=== PATIENT | female | born 1985 | race Caucasian/White ===

== ENCOUNTER 2017-04-24 08:40 | Emergency (ER) | payer MEDICAID, OTHER ==
[~2017-04-24] VITALS: Wt 61.5 kg
[~2017-04-24 08:40] MED LIST: CALC-649 PO; FERR27TA PO; PREN1TAB49 PO
[2017-04-24] MEDS ORDERED: ONDANSETRON 4 MG INJ IV STA (09:49)
[2017-04-24] MEDS ORDERED: KETOROLAC 30 MG INJ IV STA (09:49)
[2017-04-24] MEDS ORDERED: SOD CHLORIDE 0.9% 1,000 ML IV STA (09:49)
[2017-04-24 10:15] LABS: ADD UMIC NO; UR ASCORBIC ACID NEGATIVE (NEGATIVE); UR BILIRUBIN (Dip) NEGATIVE (NEGATIVE); UR BLOOD (Dip) NEGATIVE (NEGATIVE); UR CLARITY CLEAR (CLEAR); UR COLOR STRAW (YELLOW); UR GLUCOSE (Dip) NEGATIVE (NEGATIVE); UR KETONES (Dip) NEGATIVE (NEGATIVE); UR LEUKOCYTE ESTERASE (Dip) NEGATIVE Leu/ul (NEGATIVE); UR NITRITE (Dip) NEGATIVE (NEGATIVE); UR SPECIFIC GRAVITY (Dip) 1.003 (1.003-1.030); UR TOTAL PROTEIN (Dip) NEGATIVE (NEGATIVE); UR UROBILINOGEN (Dip) NEGATIVE (NEGATIVE)
[2017-04-24 10:18] LABS: BASOPHIL # 0.1 10^3/ul (0.0-0.1); BASOPHILS % 0.7 % (0.0-2.0); EOSINOPHILS # 0.4 10^3/ul (0.0-0.5); EOSINOPHILS % 5.7 % (0.0-7.0); HEMATOCRIT 39.2 % (37.0-47.0); HEMOGLOBIN 13.3 g/dl (12.0-16.0); LYMPHOCYTES # 2.5 10^3/ul (0.8-2.9); LYMPHOCYTES % 34.7 % (15.0-51.0); MEAN CORPUSCULAR HGB CONC 33.9 g/dl (32.0-37.0); MEAN CORPUSCULAR VOLUME 91.4 fl (82.0-101.0); MONOCYTE # 0.4 10^3/ul (0.3-0.9); MONOCYTES % 5.2 % (0.0-11.0); NEUTROPHIL # 3.9 10^3/ul (1.6-7.5); NEUTROPHILS % 53.6 % (39.0-77.0); PLATELET COUNT 211 10^3/UL (140-415); RED BLOOD COUNT 4.29 10^6/ul (4.20-5.40); RED CELL DISTRIBUTION WIDTH 12.6 % (11.5-14.5); WHITE BLOOD COUNT 7.3 10^3/ul (4.8-10.8)
[2017-04-24 10:31] LABS: POSITIVE DIFF @See below
[2017-04-24 11:28] LABS: ALBUMIN 3.6 g/dl (3.3-4.9); ALBUMIN/GLOBULIN RATIO 1.05; BILIRUBIN,INDIRECT 0.3 mg/dl (0-1.1); BILIRUBIN,TOTAL 0.3 mg/dl (0.2-1.3); CALCIUM 9.1 mg/dl (8.4-10.2); CREATININE 0.72 mg/dl (0.44-1.00); POTASSIUM 4.8 mmol/L (3.5-5.1)
--- NOTE | 2017-04-24 11:40 | RADRPT ---
PROCEDURE: US Pelvis CLINICAL INDICATION: PELVIC PAIN TECHNIQUE: Multiple sonographic images of the pelvis were obtained utilizing a transabdominal and endovaginal technique. The images were reviewed on a PACS workstation. COMPARISON: None. LMP: 04/12/2017 FINDINGS: The uterus measures 9.2 x 4.8 x 6.1 cm. The endometrial echo complex measures 20 mm in thickness. No discrete lesion is seen. The right ovary measures 3.5 x 1.8 x 2.4 cm. The left ovary measures 3.5 x 2.4 x 2.2 cm. There is no rmal vascular flow in both ovaries. No significant ovarian lesions are seen. There is trace pelvic free fluid. IMPRESSION: There is abnormal thickening of the endometrium to 20 mm. Correlation with a beta HCG level is recom mended. Normal vascular flow to bilateral ovaries. No significant ovarian lesions are identified. RPTAT: EE Physician Catrachito Date Time Electronically viewed and signed by Physician Catrachito on 04/24/2017 11:40 /
[2017-04-24] MEDS ORDERED: CEFTRIAXONE 1 GM INJ IM ONE (13:00)
[2017-04-24] MEDS ORDERED: LIDOCAINE 1% (MDV) 20 ML INJ SC ONE (13:00)
--- NOTE | 2017-04-24 13:08 | ERD ---
ER Documentation Chief Complaint Date/Time DATE: 04/24/17 Chief Complaint Dysuria, Pelvic pain HPI The patient is a 31-year-old female who presents to the Emergency Department with complaint of pelvic pain, dysuria, vaginal spotting, and new vaginal discharge. The patient reports that her symptoms initially began one month ago, with onset of dysuria, which she attributed to decreased fluid intake. However, over the past two weeks, she has been experiencing associated suprapubic abdominal pain/pelvic pain, left side greater than right, with onset of clear/ transparent, mucous-like vaginal discharge. She rates her current pain as 5/10. Further, over the past few days, she has also noted blood upon wiping, after using the restroom to urinate. She reports that her last menstrual period was on 04/12/2017, and normal. She is sexually active with her , with whom she does not use barrier protection. Her last pap smear was greater than one year ago, and showed an "infection" for which she was treated. She has not had a pap smear since. She denies any known STI exposure. Denies fevers, sweats, chills, nausea, vomiting, flank pain, diarrhea. Denies any other complaints at this time. She is A0. ROS All systems reviewed and are negative except as per history of present illness. Medications Home Meds Active Scripts Phenazopyridine Hcl* (Pyridium*) 200 Mg Tab, 200 MG PO TID Y for URINARY PAIN for 2 Days, #6 TAB Prov:ALISA SAUCEDA PA-C 04/24/17 Doxycycline Hyclate* (Doxycycline Hyclate*) 100 Mg Tablet.dr, 100 MG PO BID for 7 Days, TAB Prov:ALISA SAUCEDA PA-C 04/24/17 Reported Medications Calcium Carbonate (Calcium) 1 Tab Tablet, 1 TAB PO DAILY 10/12/11 Ferrous Sulfate (Iron) 1 Tab Tablet, 1 TAB PO 10/12/11 Vits W-Ca,Fe,Fa(<1MG) () 1 Tab Tablet, 1 TAB PO DAILY 04/30/11 Allergies Allergies: Coded Allergies: No Known Drug Allergies (Verified Allergy, 06/07/11) PMhx/Soc History of Surgery: No Anesthesia Reaction: No Hx Neurological Disorder: No Hx Respiratory Disorders: No Hx Cardiac Disorders: No Hx Psychiatric Problems: No Hx Miscellaneous Medical Probl: No Hx Alcohol Use: No Hx Substance Use: No Hx Tobacco Use: No Physical Exam Vitals Vital Signs Date Time Temp Pulse Resp B/P Pulse Ox O2 Delivery O2 Flow Rate FiO2 04/24/17 13:27 88 18 117/72 99 Room Air 04/24/17 08:42 97.3 76 20 121/61 98 Physical Exam GENERAL: Well-developed, well-nourished, in no acute distress. HEENT: Head is normocephalic, atraumatic. No scleral pallor or icterus. Pupils equal, round and reactive to light. Extraocular movements intact. Conjunctiva pink. Moist mucous membranes. NECK: Supple. Full range of motion. RESPIRATORY: Lungs are clear to auscultation bilaterally. Equal breath sounds. Normal expiratory effort. CARDIOVASCULAR: Regular rate and rhythm. S1 and S2 normal. GASTROINTESTINAL: Abdomen is soft and nondistended. Mild tenderness to palpation over the suprapubic abdomen. No guarding, no rebound tenderness. Normal bowel sounds. FLANK: No CVA tenderness, no mass or swelling. BACK: No midline tenderness. GENITOURINARY: Normal external genitalia. Clear, mucous-like vaginal discharge. No foul odor noted. Friable cervix, with bleeding upon taking of samples. No cervical lesions noted. No cervical motion tenderness. No adnexal tenderness. No uterine tenderness. No masses. EXTREMITIES: No clubbing, cyanosis, or edema. Normal skin perfusion. Full range of motion of both the upper and lower extremities bilaterally. Muscle tone is normal. No focal swelling or erythema. Distal pulses are palpable, 2+ bilaterally. Capillary refill is less than 2 seconds. NEUROLOGIC: The patient is alert, awake, and oriented x 3. No focal neurologic deficits. INTEGUMENT: Skin is clean, dry and intact. No rashes, lesions or petechiae present. PSYCHIATRIC: Appropriate; Cooperative. Result Diagram: 04/24/17 1007 04/24/17 1055 Results 24 hrs Laboratory Tests Test 04/24/17 09:57 04/24/17 10:07 04/24/17 10:55 Urine Color STRAW Urine Clarity CLEAR Urine pH 7.0 Urine Specific [place] 1.003 Urine Ketones NEGATIVEmg/dL Urine Nitrite NEGATIVEmg/dL Urine Bilirubin NEGATIVEmg/dL Urine Urobilinogen NEGATIVEmg/dL Urine Leukocyte Esterase NEGATIVELeu/ul Urine Hemoglobin NEGATIVEmg/dL Urine Glucose NEGATIVEmg/dL Urine Total Protein NEGATIVEmg/dl White Blood Count 7.310^3/ul Red Blood Count 4.2910^6/ul Hemoglobin 13.3g/dl Hematocrit 39.2% Mean Corpuscular Volume 91.4fl Mean Corpuscular Hemoglobin 31.0pg Mean Corpuscular Hemoglobin Concent 33.9g/dl Red Cell Distribution Width 12.6% Platelet Count 73324^3/UL Mean Platelet Volume 11.0fl Neutrophils % 53.6% Lymphocytes % 34.7% Monocytes % 5.2% Eosinophils % 5.7% Basophils % 0.7% Nucleated Red Blood Cells % 0.0/100WBC Neutrophils # 3.910^3/ul Lymphocytes # 2.510^3/ul Monocytes # 0.410^3/ul Eosinophils # 0.410^3/ul Basophils # 0.110^3/ul Nucleated Red Blood Cells # 0.010^3/ul Serum HCG, Qualitative NEGATIVE Sodium Level 142mmol/L Potassium Level 4.8mmol/L Chloride Level 107mmol/L Carbon Dioxide Level 30mmol/L Anion Gap 10 Blood Urea Nitrogen 12mg/dl Creatinine 0.72mg/dl Glucose Level 84mg/dl Calcium Level 9.1mg/dl Total Bilirubin 0.3mg/dl Direct Bilirubin 0.00mg/dl Indirect Bilirubin 0.3mg/dl Aspartate Amino Transf (AST/SGOT) 24IU/L Alanine Aminotransferase (ALT/SGPT) 29IU/L Alkaline Phosphatase 67IU/L Total Protein 7.0g/dl Albumin 3.6g/dl Globulin 3.40g/dl Albumin/Globulin Ratio 1.05 Lipase 150U/L Current Medications Medications (Trade) Dose Ordered Sig/Bacilio Route PRN Reason Start Time Stop Time Status Last Admin Dose Admin Sodium Chloride (NS) 1,000 ml @ 1,000 mls/hr Q1H STAT IV 04/24/17 09:49 04/24/17 10:48 DC 04/24/17 10:15 Ondansetron HCl (Zofran Inj) 4 mg ONCE STAT IV 04/24/17 09:49 04/24/17 09:52 DC 04/24/17 10:15 Ketorolac Tromethamine (Toradol) 30 mg ONCE STAT IV 04/24/17 09:49 04/24/17 09:52 DC 04/24/17 10:22 Ceftriaxone Sodium (Rocephin) 1 gm ONCE ONCE IM 04/24/17 13:00 04/24/17 13:01 DC 04/24/17 13:01 Lidocaine (Xylocaine 1% (Mdv) 20 ml) 20 ml ONCE ONCE SC 04/24/17 13:00 04/24/17 13:01 DC 04/24/17 13:01 Procedures/MDM DIAGNOSTIC TESTS AND INTERPRETATION: PROCEDURE: US Pelvis CLINICAL INDICATION: PELVIC PAIN TECHNIQUE: Multiple sonographic images of the pelvis were obtained utilizing a transabdominal and endovaginal technique. The images were reviewed on a PACS workstation. COMPARISON: None. LMP: 04/12/2017 FINDINGS: The uterus measures 9.2 x 4.8 x 6.1 cm. The endometrial echo complex measures 20 mm in thickness. No discrete lesion is seen. The right ovary measures 3.5 x 1.8 x 2.4 cm. The left ovary measures 3.5 x 2.4 x 2.2 cm. There is normal vascular flow in both ovaries. No significant ovarian lesions are seen. There is trace pelvic free fluid. IMPRESSION: There is abnormal thickening of the endometrium to 20 mm. Correlation with a beta HCG level is recommended. Normal vascular flow to bilateral ovaries. No significant ovarian lesions are identified. Physician Catrachito Date Time Electronically viewed and signed by Russ Shepherd Physician on 04/24/2017 11:40 Microbiology WET MOUNT Final POLYMORPH. LEUKOCYTE NONE SEEN WHITE BLOOD CELLS NONE SEEN RED BLOOD CELLS NONE SEEN BACTERIA 1+ EPITHELIAL CELLS 1+ MYCELIA NONE SEEN YEAST NONE SEEN HYPHAE NONE SEEN CLUE CELLS NO CLUE CELLS SEEN MOTILE TRICHOMONAS NO MOTILE TRICHOMONAS SEEN Microbiology GRAM STAIN Final POLYMORPH. LEUKOCYTE NONE SEEN EPITHELIAL CELLS 1+ GRAM VARIABLE RODS 1+ Morphotypes consistent with normal vaginal pedro CONSULTATION: Discussed patient case with [employer] on-call, Dr. Lebron, including patient's history, presentation, laboratory results and imaging results. Dr. Lebron states that patient's presentation is most consistent with that of cervicitis. Recommends treatment with Doxycycline 100 mg PO BID x 7 days , and follow up with [employer] [facility] as an outpatient. MEDICAL DECISION MAKING: This is a 31-year-old female presenting to the Emergency Department with dysuria, new vaginal vaginal discharge, pelvic pain, and spotting. On physical examination, the patient was noted to have a friable cervix, bleeding upon collection of samples. She had transparent vaginal discharge as well. Otherwise, no vesicles or lesions were noted. She had mild tenderness over the suprapubic abdomen, but otherwise had no cervical motion tenderness or adnexal tenderness on physical examination. Vital signs are stable. She has been sexually active, with her , with no use of barrier protection. Differential diagnosis includes, but is not limited to, urinary tract infection, ovarian torsion, pelvic inflammatory disease, tubo-ovarian abscess, ectopic , appendicitis, urinary calculi, dysmenorrhea, ovarian cyst, endometriosis, cancer/neoplasia, cystitis, diverticulitis, cervicitis, dermatitis, chlamydia, gonorrhea, bacterial vaginosis, candidiasis, herpes, lichen sclerosus, trichomoniasis. No nitrites or urine leukocyte esterase were noted on urinalysis. Urine culture is sent. Gonorrhea/chlamydial cultures sent. Urogenital wet mount performed, with no evidence of yeast, clue cells or trichomonads. Ultrasound imaging noted thickening of the endometrium. Otherwise, normal vascular flow to both ovaries, with no significant ovarian lesions. After rest, the patient reports no new complaints. Upon my review and interpretation of the patient's presentation and overall ER course, I believe that the patient's symptoms are most consistent with pelvic pain, dysuria and acute cervicitis. The patient was treated in the ED with 1 gram IV Rocephin. GC/Chlamydia screen was sent out for evaluation. She requires further [employer] evaluation as an outpatient. At this time the patient is in stable condition and therefore can be discharged home with a prescription for Doxycycline 100 mg PO BID x 7 days and Pyridium 200 mg PO TID x 2 days and strict return precautions for signs of deteriorating or worsening condition. The patient is instructed to follow up with an [employer] within 1-2 days for reevaluation and further management, and for proper pap smear, or return to the ED sooner for any new or worsening symptoms. I shared my medical decision making and plan with the patient at length and in great detail and she verbally understands and agrees with the plan for further observation and care as an outpatient. At the time of discharge, all questions were answered. Departure Diagnosis: Primary Impression: Acute pain in female pelvis Additional Impressions: Acute cervicitis Dysuria Condition: Stable Patient Instructions: Dysuria, Pelvic Pain, Unknown Cause Additional Instructions: Call an [employer] OPERATOR TOMORROW for an appointment during the next 1-2 days. You need a pap smear. See the doctor sooner or return here if your condition worsens before your appointment time. ALISA SAUCEDA PA-C Apr 24, 2017 13:08
[2017-04-24] MEDS ORDERED: DOXY100T20 PO (13:09)
[2017-04-24] MEDS ORDERED: PHEN-538 PO (13:09)
[2017-04-24 13:27] VITALS: BP 117/72; PULSE 88; RESP 18
== END 2017-04-24 14:19 | disposition home or self-care (01) ==
LOC: FTE 08:40 → E/R 14:19
DX: R10.2 Pelvic and perineal pain (principal); N72 Inflammatory disease of cervix uteri; R30.0 Dysuria
CPT/HCPCS: 36415; 76830; 76856; 80053; 81003; 83690; 84703; 85025; 87081; 87086; 87210; 87591; 96372; 96374; 96375; J0696; J1885; J2405; J7030; Z7502; Z7610